=== PATIENT | female | born 1955 | race Caucasian/White ===

== ENCOUNTER → 2016-12-28 | Day surgery (SDC) | payer MEDICARE ==
[~2016-12-28] VITALS: Ht 162.6 cm; Wt 67.7 kg
[~2016-12-28] MED LIST: INSULIN HUMAN REGULAR 1,000 UNITS/10 ML VIAL SQ PRN; LACTATED RINGER'S 1000 ML IV SCH; LIPI20TA PO; METOPROLOL TARTRATE 25 MG TAB PO PRN; SODIUM CHLOR 0.9% 250 ML INJ 250 ML ONE; SODIUM CHLORID 0.9% 500 ML IV SCH; VANCOMYCIN HCL 1000 MG VIAL ONE
[2016-12-28 11:38] VITALS: BP 120/66; PULSE 80; RESP 16; TEMP 99.8; O2SAT 96
[2016-12-28 12:25] LABS: BACTERIA, URINE MOD /hpf; BLOOD, URINE TRACE (NEG); COMMENT (UR) CULTURE INDICATED; CULTURE IF INDICATED CULTURE INDICATED; GLUCOSE,URINE NEG (NEG); GRANULAR CAST, URINE 4 /lpf; HYALINE CAST, URINE 4 /lpf (RARE); KETONE, URINE NEG (NEG); MUCUS URINE MOD /lpf (OCC); NITRITE,URINE NEG (NEG); SQUAMOUS EPITHELIAL CELL URINE 4 /hpf (0-5); URINE COLOR YELLOW (YELLW/STRAW)
== END | disposition home or self-care (01) ==
LOC: HSDI 10:57 → HSDC 10:57 → UNDOADMIN 10:57 → HSDI 10:57 → EDSTATUS 13:00
PROVIDERS: ATTEND Orthopaedic Surgery
DX: M16.11 Unilateral primary osteoarthritis, right hip (principal); B96.20 Unspecified Escherichia coli [E. coli] as the cause of diseases classified elsewhere; Z53.8 Procedure and treatment not carried out for other reasons; N39.0 Urinary tract infection, site not specified
CPT/HCPCS: 81001; 86850; 86890; 86900; 86901; 86920; 87077; 87086; 87186; G0463; 99211; J3370; J7050